=== PATIENT | female | born 1955 | race Caucasian/White ===

== ENCOUNTER → 2019-04-16 12:03 | Outpatient (CLI) | payer MEDICAID ==
[2015-06-16 06:12] VITALS: BMI 23.8
[~2019-04-16 12:03] MED LIST: AMITIZA8 MCG PO; EFFEXOR75 MG PO; ENULOSE10 G/15 ML PO; HYDROCODON-ACE1 EAC7 PO; LEVSIN/ANASP0.125 MG PO; LINZESS145 MCG PO; PRILOSEC20 MG PO; PROBIOTIC1 EAC1 PO
== END | disposition home or self-care (01) ==
LOC: D.MRI 12:03
PROVIDERS: ATTEND Clinical Nurse Specialist Family Health
DX: M25.512 Pain in left shoulder (principal)

== ENCOUNTER → 2019-04-19 08:55 | Outpatient (CLI) | payer MEDICARE, MEDICAID, OTHER ==
[2015-06-16 06:12] VITALS: BMI 23.8
== END | disposition home or self-care (01) ==
LOC: D.HCCARDIO 08:55
PROVIDERS: ATTEND Internal Medicine Cardiovascular Disease
DX: I20.9 Angina pectoris, unspecified (principal)

== ENCOUNTER 2019-05-16 06:27 | Outpatient (CLI) | payer MEDICARE, OTHER, MEDICAID ==
[~2019-05-16] VITALS: Ht 156.2 cm; Wt 49.1 kg
--- NOTE | ~2019-05-16 | HEMODYNAMI ---
PATIENT:EDUARDO MONTE MEDICAL RECORD: [id number] : 51 LOCATION:[facility] ADMISSION DATE: 05/16/19 Generatedon:05/16/201911:23 Patient name: EDUARDO MONTE Patient #: [id number] SSN: [id number] : 1955 Date of study: 05/16/2019 Page: Of Hemodynamic Procedure Report Patient Data Patient Demographics Procedure consent was obtained First Name: EDUARDO Gender: Female Last Name: LAVELL : 1955 Middle Initial: FRANCESCA Age: 63 year(s) Patient #: [id number] Race: SSN: [id number] Additional ID: [id number] Contact details [address]: [address] [place] [address] State: [place] City: [place] Zip code: [address] Past Medical History Performed procedures and imaging results Date Procedure Procedure Results Comments 04/19/2019 Stress testing Positive->Intermediate with SPECT MPI risk Allergies: No known allergies Admission Admission Data Admission Date: 05/16/2019 Admission Time: 6:27 Arrival Date: 05/16/2019 Arrival Time: 0:00 Admit Source: Other Insurance Payor: Medicare [facility] #: [id number] Height (in.): 61.5 BSA: 1.46 (m2) Height (cm.): 156.21 BMI: 20.12 (kg/m2) Weight (lbs.): 108.23 Weight (kg.): 49.09 Lab Results Lab Result Date: 05/16/2019 Lab Result Time: 0:00 Biochemistry Name Units Result Min Max BUN mg/dl 10 --(-*--)-- 7 18 Creatinine mg/dl 0.7 --(*---)-- 0.6 1.3 eGFR ml/min 88.87485 -*(----)-- 90 120 NONAFRICAN CBC Name Units Result Min Max Hematocrit % 37.6 *-(----)-- 42 54 Hemoglobin g/dl 12.5 *-(----)-- 13.5 17.5 Procedure Procedure Types Cath Procedure Diagnostic Procedure [facility] w/Coronaries Sedation Charges Moderate Sedation up to 30 minutes PCI Procedure Coronary Stent Coronary Stent Initial Hemochron ACT Test Procedure Description Procedure Date Procedure Date: 05/16/2019 Procedure Start Time: 10:40 Procedure End Time: 11:12 Procedure Staff Name Function Diego Pires MD Performing Physician Renate Jarquin RT Monitor Joyce Sim RT Monitor Mac Rojas RN Nurse Alaina García RT Scrub Mustapha Ballesteros RT Scrub Indication Chest pain Procedure Data Cath Procedure Fluoroscopy Diagnostic fluoroscopy Total fluoroscopy Time: 5.4 time: 5.4 min min Diagnostic fluoroscopy Total fluoroscopy dose: 372 dose: 372 mGy mGy Contrast Material Contrast Material Type Amount (ml) Isovue 370 107 Entry Location Entry Primary Successful Side Size Upsize Upsize Entry Closure Succes sful Closure Location (Fr) 1 (Fr) 2 (Fr) Remarks Device Remarks Femoral Right 5 Fr 6 Fr Exoseal artery Short Estimated blood loss: 10 ml Diagnostic catheters Device Type Used For End Catheter Placement MULTIPACK JL 4.0 5Fr Procedure catheter MULTIPACK 3DRC 5Fr Procedure catheter MULTIPACK Pigtail 5 Fr Procedure catheter Procedure Complications No complications Procedure Medications Medication Administration Route Dosage Oxygen etCO2 Nasal cannula 2 l/min Lidocaine 2% added to field 20 Heparin Flush Bag added to field 2 bags (1000units/500ml NS) 0.9% NaCl I.V. 100 ml/hr Versed I.V. 2 mg Fentanyl I.V. 50 mcg Versed I.V. 2 mg Fentanyl I.V. 50 mcg Versed I.V. 2 mg Heparin Bolus I.V. 5000 units Fentanyl I.V. 25 mcg Plavix P.O. 600 mg Hemodynamics Rest BSA: 1.46 (m2) HGB: 12.5 (g/dl) O2 Consumption: Estimated: 132.97 (ml/min) O2 Co nsumption indexed: Estimated:91.08 (ml/min/m) Heart Rate: 64 (bpm) Pressure Samples Time Site Value (mmHg) Purpose Heart Use Rate(bpm) 10:49 LV 137/-4,20 Snapshot 68 10:49 AO 105/58(78) Pullback 66 10:49 LV 110/-3,6 Pullback 66 Gradients Valve Time Site 1 Site 2 Mean SEP/DFP Peak To Heart Use (mmHg) (sec/min) Peak Rate (mmHg) (bpm) Aortic 10:49 LV AO 6 21 5 66 110/-3,6 105/58(78) Calculations Valve P-P Mean Valve Index Valve Source Name Gradient Area Flow (cm2) Aortic 5 6 5 6 Snapshots Pre Cath Intra NCS Post Cath Vital Signs Time Heart Resp SPO2 etCO2 NIBP Rhythm Pain Sedation Rate (ipm) (%) (mmHg) (mmHg) Status Level (bpm) 10:28:37 74 15 98 24.4 137/84(99) NSR 0 (11) 10(A) , No pain 10:32:53 64 12 97 37.8 120/64(88) NSR 0 (11) 10(A) , No pain 10:37:07 66 11 98 33.4 106/57(78) NSR 0 (11) 10(A) , No pain 10:41:11 65 13 97 26.7 108/70(85) NSR 0 (11) 10(A) , No pain 10:45:20 66 10 97 36.3 94/57(74) NSR 0 (11) 10(A) , No pain 10:49:22 66 10 97 37.1 95/62(88) NSR 0 (11) 10(A) , No pain 10:53:26 62 12 97 37 103/60(80) NSR 0 (11) 9(A) , No pain 10:57:34 62 11 97 38.5 99/54(76) NSR 0 (11) 9(A) , No pain 11:01:39 62 10 97 37.8 100/57(78) NSR 0 (11) 9(A) , No pain 11:05:45 61 12 97 40.7 98/57(78) NSR 0 (11) 10(A) , No pain 11:10:34 71 8 98 31.8 116/78(90) NSR 0 (11) 10(A) , No pain Medications Time Medication Route Dose Verified Delivered Reason Notes Effectiveness by by 10:28:06 Oxygen etCO2 2 Diego Buffie used for Nasal l/min Pranay Rojas potato inspector cannula 10:28:11 Lidocaine 2% added 20ml Diego Diego for local to vial Pranay Pires MD anesthetic field 10:28:17 Heparin Flush added 2 Idego Diego used for Bag to bags Pranay Pires MD procedure (1000units/500ml field NS) 10:28:25 0.9% NaCl I.V. 100 Diego Buffie Per physician ml/hr Pranay Rojas RN 10:36:42 Versed I.V. 2 mg Diego Buffie for sedation Pranay Rojas RN 10:36:48 Fentanyl I.V. 50 Diego Buffie for sedation mcg Pranay Rojas RN 10:43:03 Versed I.V. 2 mg Diego Buffie for sedation Pranay Rojas RN 10:43:06 Fentanyl I.V. 50 Diego Buffie for sedation mcg Pranay Rojas RN 10:46:38 Versed I.V. 2 mg Diego Buffie for sedation Pranay Rojas RN 10:54:30 Heparin Bolus I.V. 5000 Diego Buffie for verif ied units Pranay Rojas RN anticoagulation with dr pires 11:02:22 Fentanyl I.V. 25 Diego Buffie for sedation mcg Pranay Rojas RN 11:09:47 Plavix P.O. 600 Diego Buffie for mg Pranay Rojas RN antiplatelet therapy Procedure Log Time Note 10:08:16 Diagnostic Cath Status : Elective 10:08:39 Indication : Chest pain 10:08:44 Procedure Status Elective Heart Cath (OP). 10:08:51 Plan of Care:Hemodynamics will remain stable., Cardiac rhythm will remain stable., Comfort level will be maintained., Respiratory function will remain adequate., Patient/ family verbilizes understanding of procedure., Procedure tolerated without complication., Recovers from procedure without complications.. 10:08:54 Time tracking: Regular hours (M-F 7:00 - 5:00) 10:12:01 Mac Rojas RN sent for patient. Start room use. 10:12:20 Lab results completed and on chart. 10:12:52 Lab Result : BUN 10 mg/dl 10:12:52 Lab Result : Creatinine 0.7 mg/dl 10:12:52 Lab Result : eGFR NONAFRICAN 88.92345 ml/min 10:12:52 Lab Result : Hemoglobin 12.5 g/dl 10:12:52 Lab Result : Hematocrit 37.6 % 10:13:29 Stress Test: yes; abnormal anterior 10:13:35 Risk of Mortality: 0.2 10:13:38 Risk of blood transfusion: 2.0 10:13:42 Risk of LIZ: 1.1 10:14:19 H&P Date Dictated: 04/17/2019 Within 30 days and on chart.. 10:14:43 Informed consent obtained and on chart 10:18:00 Arrival Date: 05/16/2019 12:00:00 AM 10:19:03 Patient Height : 61.5 inches 10:19:10 Patient Weight : 108.23 lbs 10:19:14 Admit Source: Other 10:19:14 Insurance Payor : Medicare 10:19:53 Patient received from Pre/Post Procedure Room to CCL 1 Alert and oriented. Tansferred to table in Supine position. 10:19:56 Warm blankets applied, and jenni hugger turned on for patient comfort. 10:19:57 Correct patient and procedure confirmed by team. 10:19:58 ECG and BP/O2 sat monitors applied to patient. 10:20:02 Pre-procedure instructions explained to patient. 10:20:03 Pre-op teaching completed and patient verbalized understanding. 10:20:06 Family in waiting room. 10:20:07 Patient NPO since Midnight. 10:20:12 Patient allergic to No known allergies 10:20:18 Alarms reviewed by R. N. 10:20:18 Sharps counted by scrub and verified by R.N. 10:27:32 Vital chart was started 10:27:37 Is the patient allergic to Iodine/contrast media? No. 10:27:39 Is patient on blood thinner?No 10:27:41 Patient diabetic? No. 10:27:43 If diabetic: On Metformin? N/A 10:27:50 Patient not . Patient is over age 55. 10:27:51 ----Pre-sedation anethsthesia assessment.---- 10:27:55 Previous problem with sedation/anesthesia? No ? 10:27:56 Snore? Yes 10:27:58 Sleep apnea? No 10:28:00 Deviated septum? No 10:28:01 Opens mouth fully? Yes 10:28:02 Sticks out tongue? Yes 10:28:04 Airway obstruction? No ? 10:28:06 Oxygen 2 l/min etCO2 Nasal cannula was administered by Mac Rojas RN; used for procedure; Verbal order read back and verified. 10:28:10 Dentures? Yes TOP IN TIGHT 10:28:11 Lidocaine 2% 20ml vial added to field was administered by Diego Pires MD; for local anesthetic; Verbal order read back and verified. 10:28:16 Pre procedure: right dorsailis pedis pulse 2+ Normal; easily identifiable; not easily obliterated 10:28:17 Heparin Flush Bag (1000units/500ml NS) 2 bags added to field was administered by Diego Pires MD; used for procedure; Verbal order read back and verified. 10:28:20 Patient pain scale 0/10 ?. 10:28:25 0.9% NaCl 100 ml/hr I.V. was administered by Mac Rojas RN; Per physician; Verbal order read back and verified. 10:28:29 IV patent on arrival in right wrist with 0.9% NaCl at O. 10:28:41 Right groin area was prepped with chlora-prep and draped in sterile fashion 10:28:47 Use device set Femoral Dx 10:28:52 ACIST Syringe (18820) opened to sterile field. 10:28:53 Bag Decanter (2002S) opened to sterile field. 10:28:54 Medline Cath Pack ([id number]) opened to sterile field. 10:28:56 ACIST Hand Control (34978) opened to sterile field. 10:28:56 ACIST Manifold (33690) opened to sterile field. 10:28:57 DIAGNOSTIC Multipack 5Fr catheter set ([id number]) opened to sterile field. 10:28:59 SHEATH 5FR Jones (SNX957) opened to sterile field. 10:29:00 EMERALD Guide Wire (773-991) opened to sterile field. 10:29:16 Full Disclosure recording started 10:29:51 GROIN DUE TO PTS SZ PER DR PIRES. 10:34:07 --------ALL STOP TIME OUT------ 10:34:07 Final Timeout: patient, procedure, and site verified with staff and physician. All members of the team are in agreement. 10:34:10 Right groin site verified by team. 10:34:15 Fire Safety Assessment: A--An alcohol-based skin anteseptic being used preoperatively., C--Open oxygen or nitrous oxide is being used., D--An ESU, laser, or fiber-optic light is being used. 10:34:32 Physical assessment completed. ASA score P 2 - A patient with mild systemic disease as per Diego Pires MD. 10:34:38 2) 60-89 Mildly reduced kidney function, and other findings (as for stage 1) point to kidney disease. 10:34:43 Maximum allowable contrast dose (3.7 X eGFR X 0.75)247 ml. 10:34:47 Sedation plan: IV Moderate Sedation Medication:Versed, Fentanyl 10:36:42 Versed 2 mg I.V. was administered by Mac Rojas RN; for sedation; Verbal order read back and verified. 10:36:48 Fentanyl 50 mcg I.V. was administered by Mac Rojas RN; for sedation; Verbal order read back and verified. 10:37:39 Zero performed for pressure channel P1 10:39:59 Procedure started. 10:40:29 Local anesthetic to right femoral artery with Lidocaine 2% by Diego Pires MD.INITIAL ACCESS ONLY 10:42:11 Baseline sample Acquired. 10:42:15 Rhythm: sinus rhythm 10:42:27 A 5 Fr sheath was inserted into the Right Femoral artery 10:43:03 Versed 2 mg I.V. was administered by Mac Rojas RN; for sedation; Verbal order read back and verified. 10:43:03 A MULTIPACK JL 4.0 5Fr catheter was advanced over the wire and used for Procedure. 10:43:06 Fentanyl 50 mcg I.V. was administered by Mac Rojas RN; for sedation; Verbal order read back and verified. 10:43:52 LCA angiography performed. 10:45:33 Catheter exchanged over wire. 10:45:41 A MULTIPACK 3DRC 5Fr catheter was advanced over the wire and used for Procedure. 10:46:38 Versed 2 mg I.V. was administered by Mac Rojas RN; for sedation; Verbal order read back and verified. 10:46:51 RCA angiography performed. 10:47:19 ACCDominant side:Co-Dominant 10:47:31 Catheter exchanged over wire. 10:47:50 A MULTIPACK Pigtail 5 Fr catheter was advanced over the wire and used for Procedure. 10:49:20 LV hemodynamics recorded. 10:49:24 Injector settings: Ml/sec: 10, Volume: 20, 10:49:27 LV gram done using BARRIOS 10:49:33 EF : 55 % 10:50:02 Catheter exchanged over wire. 10:50:03 Proceeding to intervention. 10:50:36 SHEATH 6FR Jones (EBJ440) opened to sterile field. 10:50:37 INFLATOR Merit BasixCompak (TN5891) opened to sterile field. 10:50:37 BMW 300cm Straight Chappell 2 wire ([id number]) opened to sterile field. 10:50:38 TUBING High Pressure Extension Tubing (Pranay) ([id number]) opened to sterile field. 10:51:10 GUIDE 6FR XBLAD 3.5 catheter ([id number]) opened to sterile field. 10:51:20 Sheath upsized to a 6 Fr Short. 10:51:31 6 Fr XBLAD 3.5 guide catheter was inserted over the wire 10:51:55 BMW 300 wire advanced. 10:52:18 Pre PCI Site: [place] mLAD has 80% stenosis. 10:54:30 Heparin Bolus 5000 units I.V. was administered by Mac Rojas RN; for anticoagulation; verified with dr pires Verbal order read back and verified. 10:54:55 Wire advanced across lesion. 10:57:55 Inflate balloon Inflation number: 1 A Mozec Rx 2.5 x 14 balloon was prepped and advanced across the Mid LAD , then inflated to 10 LAZARA for 0:00 (min:sec) . 10:58:20 Inflation number: 2 The Mozec Rx 2.5 x 14 balloon was reinflated across the Mid LAD , to 10 LAZARA for 0:00 (min:sec) . 10:59:54 Balloon removed over the wire. 11:02:22 Fentanyl 25 mcg I.V. was administered by Mac Rojas RN; for sedation; Verbal order read back and verified. 11:04:03 Place stent Inflation Number: 3 A RACIEL OTW 2.5 x 22 stent ([id number]) was prepped and advanced across the Mid LAD . The stent was deployed at 13 LAZARA for 0:00 (min:sec) . 11:04:50 ACT drawn and resulted at ? seconds. (normal therapeutic range 180-240 seconds). 11:04:51 ACT drawn and resulted at 000 seconds. (normal therapeutic range 180-240 seconds). 11:04:54 Stent catheter was removed intact over wire. 11:04:55 Wire removed. 11:04:55 Guide catheter removed. 11:05:08 EXOSEAL 6Fr (EX600) opened to sterile field. 11:05:31 Sheath removed intact; hemostasis achieved with Exoseal to the Right Femoral artery. 11:06:47 Procedure ended.(Physican Out) 11:06:58 Fluoroscopy time 05.40 minutes. 11:07:02 Fluoroscopy dose: 372 mGy 11:07:02 Flurop Dose total: 372 11:07:12 Dose Area Product 16291 mGy/cm. 11:07:17 Contrast amount:Isovue 370 107ml. 11:07:20 Maximum allowable dose exceeded? No. 11:07:22 Sharps counted by scrub and verified by R.N. 11:07:27 Post-op/insertion site Right Femoral artery dressed using a 4 x 4 and Tegaderm. 11:07:32 Post right femoral artery:stable, soft, clean and dry 11:07:34 Post Procedure Pulses reassessed and unchanged 11:07:37 Post procedure: right dorsailis pedis pulse 2+ Normal; easily identifiable; not easily obliterated. 11:07:40 Post-procedure physical assessment completed. ASA score P 2 - A patient with mild systemic disease as per Diego Pires MD. 11:07:44 Post procedure rhythm: unchanged. 11:07:47 Estimated blood loss: 10 ml 11:07:49 Post procedure instruction explained to patient.Patient verbalizes understanding. 11:07:50 Patient needs reinforcement of post procedure teaching. 11:08:38 Procedure type changed to Cath procedure, Diagnostic procedure, LHC, [facility] w/Coronaries, Sedation Charges, Moderate Sedation up to 30 minutes, PCI procedure, Coronary Stent, Coronary Stent Initial, Hemochron ACT Test 11:09:47 Plavix 600 mg P.O. was administered by Mac Rojas RN; for antiplatelet therapy; Verbal order read back and verified. 11:11:36 Procedure and supply charges have been captured, reviewed, submitted and are correct. 11:11:45 Procedure Complication : No complications 11:11:48 Vital chart was stopped 11:11:[address] [facility] Findings: MVD- PCI performed (see procedure note) 11:11:51 Operative report dictated upon procedure completion. 11:11:52 See physician's report for complete and final results. 11:11:56 Report given to Pre/Post Procedure Room. 11:11:59 Patient transfered to Pre/Post Procedure Room with Stretcher. 11:12:03 Procedure ended. 11:12:03 Full Disclosure recording stopped 11:12:48 ACT 333. 11:22:04 Femstop placed over the right femoral artery at 140 mmHg. Hemostasis achieved. 11:22:23 PRECAUTIONARY. 11:22:38 FEMSTOP Gold ([id number]) opened to sterile field. 11:22:51 ACC-PCI Only Patient was given prescriptions, or instructed by Diego Pires MD to start/continue the following medications upon discharge: Plavix 11:22:52 End room use (Document Last) 11:23:06 End room use (Document Last) 11:23:22 End room use (Document Last) Intervention Summary Intervention Notes Time ActionType Lesion and Equipment Action# Pressure Duration Attributes Used 10:57:55 Inflate Mid LAD Mozec Rx 2.5 1 10 00:00 balloon x 14 balloon 10:58:20 Reinflate Mid LAD Mozec Rx 2.5 2 10 00:00 balloon x 14 balloon 11:04:03 Place stent Mid LAD RACIEL OTW 2.5 3 13 00:00 x 22 stent ([id number]) Device Usage Item Name Manufacture Quantity Catalog Hospital Part Current Minim al Lot# / Number Charge Number Stock Stock Serial# Code ACIST Syringe Acist 1 36826 464231 581599 166489 20 (42491) Medical Systems Inc Bag Decanter Microtek 1 145786 23097 501201 5 () Medical Inc. Medline Cath Medline 1 [id number] 455866 24498 265704 5 Pack ([id number]) ACIST Hand Acist 1 43384 628001 454578 659989 5 Control Medical (41602) Systems Inc ACIST Acist 1 30431 609209 062060 895875 5 Manifold Medical (75812) Systems Inc DIAGNOSTIC Cardinal 1 OW6057 425957 74404 359284 30 Multipack 5Fr Health catheter set (OG6644) SHEATH 5FR Terumo 1 NTK764 226608 944559 836858 5 Jones (AWO941) EMERALD Guide Cardinal 1 502455 824270 442460 461123 5 Wire Health (502455) MULTIPACK JL Cardinal 1 016721 5 4.0 5Fr Health catheter MULTIPACK Cardinal 1 366114 5 3DRC 5Fr Health catheter MULTIPACK Cardinal 1 738127 5 Pigtail 5 Fr Health catheter SHEATH 6FR Terumo 1 JSP605 661429 345094 745794 40 Jones (ENA353) INFLATOR Merit 1 HB5117 450450 383052 445535 15 Merit Medical BasixCompak (EB8773) BMW 300cm Jeffers 1 6470206 142544 741861 987067 5 Straight Vascular Chappell 2 wire (4494127) TUBING High Merit 1 [id number] 302976 81438 912325 10 Pressure Medical Extension Tubing (Pires) ([id number]) GUIDE 6FR Cardinal 1 [id number] 196465 459267 710128 10 XBLAD 3.5 Health catheter (98328862) Mozec Rx 2.5 Cardinal 1 [id number] 393544 21766 482654 5 UMOE39 x 14 balloon Health RACIEL OTW 2.5 Medtronic 1 [id number] 194425 90988 799313 5 [id number] x 22 stent ([id number]) EXOSEAL 6Fr Cardinal 1 EX600 816121 177166 651924 10 (EX600) Health FEMSTOP Gold St El 1 K53657 485011 234395 433642 5 ([id number]) Signature Audit [place] Stage Time Signature Unsigned Intra-Procedure 05/16/2019 Joyce Sim 11:23:06 AM RT(R) Intra-Procedure 05/16/2019 Mac Rojas RN 11:23:22 AM Intra-Procedure 05/16/2019 Diego Pires MD 11:23:44 AM [facility] [address] [place] [address]
[2019-05-16] MEDS ORDERED: HYDROCODON-ACE1 EAC7 PO (07:25)
[2019-05-16 07:49] VITALS: BP 140/74; Ht 156.2 cm; Wt 49.1 kg
[2019-05-16 07:55] LABS: BASOPHILS 0.5 % (0-2); EOSINOPHILS 1.2 % (0-7); HEMATOCRIT 37.6 % (36.0-48.0); HEMOGLOBIN 12.5 g/dL (12-16); LYMPHOCYTES 43.9 % (15-50); MCHC 33.2 g/dL (31.0-37.0); MCV 93.3 fL (80.0-100.0); MEAN PLATELET VOLUME 8.9 fL (7.4-10.4); MONOCYTES 9.5 % (2-11); NEUTROPHILS 44.9 % (40-80); PLATELET COUNT 235 10x3/uL (130-400); RBC 4.03 10x6/uL (4.00-5.40); RDW 13.9 % (11.5-14.5)
[2019-05-16 08:17] LABS: ALT (SGPT) 23 U/L (10-68); CALC OSMOLALITY 283 mosm/kg (275-300); CALCIUM 9.3 mg/dL (8.5-10.1); CARBON DIOXIDE 27.8 mmol/L (21.0-32.0); CHLORIDE - SERUM 105 mmol/L (98-107); CHOL - HDL RATIO 2.7 ratio (2.3-4.1); CHOLESTEROL, TOTAL 295 mg/dL (0-200); CREATININE - SERUM 0.7 mg/dL (0.6-1.3); GLUCOSE 100 mg/dL (74-106); HDL CHOLESTEROL 110 mg/dL (32-96); LDL CHOLESTEROL 170 mg/dL (0-100); LDL-HDL RATIO 1.5 ratio (1.5-3.5); POTASSIUM - SERUM 3.3 mmol/L (3.5-5.1); SODIUM 143 mmol/L (136-145); TRIGLYCERIDE 78 mg/dL (30-200); UREA NITROGEN 10 mg/dL (7-18); eGFR NON AFRICAN AMERICAN 89 mL/min (90-120)
[2019-05-16] MEDS ORDERED: PLAVIX75 MG PO (11:23)
[2019-05-16] MEDS ORDERED: ASPIRIN81 MG PO (11:23)
--- NOTE | 2019-05-16 11:25 | NUR ---
PATIENT ARRIVED TO ROOM 7, PLACED ON CM. VSS ON 2L NC. RIGHT GROIN 6F EXOSEAL, FEMOSTOP PLACED AT 1122, AT 105 MMHG. NO S/S OF BLEEDING OR HEMATOMA. WILL CONTINUE TO MONITOR. PHYSICIAN PREVIOUSLY AT BEDSIDE TO UPDATE SPOUSE.
--- NOTE | 2019-05-16 11:40 | NUR ---
PATIENT GIVEN WATER REQUESTED, NO N/V. VSS ON 2L NC. HR 54. NIBP 91/51. FEMOSTOP REMAINS IN PLACE ON RIGHT GROIN SITE, NO S/S OF BLEEDING OR HEMATOMA. NO C/O PAIN,NUMBNESS, OR TINGLING. WILL CONTINUE TO MONITOR.
--- NOTE | 2019-05-16 12:10 | NUR ---
PATIENT INTERMITTENTLY RESTING, VSS ON 2L NC. RIGHT GROIN SITE SHOWS NO S/S OF BLEEDING OR HEMATOMA. NO C/O PAIN, NUMBNESS, OR TINGLING. 15 CC OF AIR REMOVED FROM FEMOSTOP PER PROTOCOL, NO S/S OF BLEEDING OR HEMATOMA.
--- NOTE | 2019-05-16 12:40 | NUR ---
25 CC OF AIR REMOVED FROM FEMOSTOP, NO S/S OF BLEEDING OR HEMATOMA. NO C/O PAIN, NUMBNESS, OR TINGLING. VSS ON ROOM AIR. TOLERATING PO FLUIDS, NO N/V. SPOUSE PRESENT AT BEDSIDE.
--- NOTE | 2019-05-16 13:10 | NUR ---
FEMOSTOP DEVICE REMOVED, DRESSING APPLIED WITH 4X4s AND LARGE TEGADERM, NO S/S OF BLEEDING OR HEMATOMA. VSS ON ROOM AIR. NO C/O PAIN, NUMBNESS, OR TINGLING. NO N/V. HR 54. NIBP 141/74.
--- NOTE | 2019-05-16 13:30 | NUR ---
PATIENT C/O ACHING PAIN IN LEFT CHEST AND LEFT SHOULDER BLADE, RATES IT 6/10. PATIENT DENIES PRESSURE, NUMBNESS, OR TINGLING, OR RADIATION OF PAIN. VSS ON ROOM AIR. HR 57. NIBP 143/73. 12 LEAD EKG OBTAINED AND REVIEWED WITH PHSYICIAN, VERBAL ORDERS FOR GI COCKTAIL RECEIVED FROM DR. TOMAS.
--- NOTE | 2019-05-16 13:55 | NUR ---
RIGHT GROIN DRESSING IS CDI, NO S/S OF BLEEDING OR HEMATOMA. NO C/O PAIN, NUMBNESS, OR TINGLING. VSS ON ROOM AIR. PATIENT UPDATED REGARDING PHYSICIAN ORDERS. FAMILY AT BEDSIDE UPDATED.
--- NOTE | 2019-05-16 14:10 | NUR ---
HEAD OF BED ELEVATED TO 45 DEGREES. RIGHT GROIN DRESSING IS CDI, NO S/S OF BLEEDING OR HEMATOMA. PATIENT C/O ACHING PAIN IN LEFT SHOULDER BLADE AND LEFT FRONT CHEST AREA, PATIENT DENIES RADIATION OF PAIN. VSS ON ROOM AIR. NO NUMBNESS OR TINGLING. PATIENT GIVEN ORANGE SHERBERT PER REQUEST, NO N/V.
--- NOTE | 2019-05-16 14:40 | NUR ---
ORAL GI COCKTAIL GIVEN ORDERED. VSS ON ROOM AIR. RIGHT GROIN DRESSING IS CDI, NO S/S OF BLEEDING OR HEMATOMA. SPOUSE PRESENT AT BEDSIDE.
--- NOTE | 2019-05-16 15:00 | NUR ---
PATIENT STATES TOTAL RELIEF OF PAIN IN LEFT SHOULDER AND CHEST REGION. VSS ON ROOM AIR. RIGHT GROIN DRESSING IS CDI, NO S/S OF BLEEDING OR HEMATOMA. NO C/O PAIN, NUMBNESS, OR TINGLING. PIV REMOVED WITH CATHETER INTACT. PATIENT REMOVED FROM MONITORS TO GET DRESSED. WRITTEN AND VERBAL DISCHARGE INSTRUCTIONS AND MEDICATION INSTRUCTIONS GIVEN TO PATIENT AND SPOUSE, BOTH VOICE UNDERSTANDING. PATIENT VOIDED WITHOUT DIFFICULTY.
--- NOTE | 2019-05-16 15:10 | NUR ---
PATIENT TRANSPORTED VIA WHEELCHAIR TO CAR WITH SPOUSE DRIVING, ALL BELONGINGS WITH PATIENT.
== END 2019-05-16 15:10 ==
LOC: D.CATH 06:27
PROVIDERS: ATTEND Internal Medicine Cardiovascular Disease
DX: I20.9 Angina pectoris, unspecified (principal); R94.39 Abnormal result of other cardiovascular function study; R07.9 Chest pain, unspecified

== ENCOUNTER 2019-05-19 10:52 | Emergency (ER) | payer MEDICARE, OTHER, MEDICAID ==
[~2019-05-19] VITALS: Ht 156.2 cm; Wt 49.1 kg
[~2019-05-19 10:52] MED LIST changes: +ASPIRIN81 MG PO; +PLAVIX75 MG PO
[2019-05-19 10:55] VITALS: Ht 156.2 cm; Wt 49.1 kg
[2019-05-19 11:20] LABS: BASOPHILS 0.4 % (0-2); HEMATOCRIT 35.3 % (36.0-48.0); HEMOGLOBIN 11.6 g/dL (12-16); IMMATURE GRANULOCYTES 0.2 % (0-5); LYMPHOCYTES 44.2 % (15-50); MCH 30.9 pg (26.0-34.0); MCHC 32.9 g/dL (31.0-37.0); MCV 94.1 fL (80.0-100.0); MEAN PLATELET VOLUME 8.6 fL (7.4-10.4); NEUTROPHILS 45.2 % (40-80); PLATELET COUNT 203 10x3/uL (130-400); RBC 3.75 10x6/uL (4.00-5.40); RDW 13.6 % (11.5-14.5); WBC 4.9 10x3/uL (4.8-10.8)
[2019-05-19 11:30] LABS: APTT 21.9 SECONDS (22.8-39.4); INR 0.92 (0.85-1.17); PROTIME 11.9 SECONDS (11.6-15.0)
[2019-05-19 11:41] LABS: CALC OSMOLALITY 280 mosm/kg (275-300); CALCIUM 9.1 mg/dL (8.5-10.1); CARBON DIOXIDE 26.9 mmol/L (21.0-32.0); CHLORIDE - SERUM 104 mmol/L (98-107); CREATININE - SERUM 0.6 mg/dL (0.6-1.3); GLUCOSE 90 mg/dL (74-106); POTASSIUM - SERUM 3.9 mmol/L (3.5-5.1); SODIUM 141 mmol/L (136-145); UREA NITROGEN 13 mg/dL (7-18); eGFR NON AFRICAN AMERICAN > 90 mL/min (90-120)
[2019-05-19 11:47] LABS: ALBUMIN 4.3 g/dL (3.4-5.0); ALKALINE PHOSPHATASE 57 U/L (46-116); ALT (SGPT) 21 U/L (10-68); BILIRUBIN - TOTAL 0.38 mg/dL (0.2-1.3); PROTEIN - SERUM 7.9 g/dL (6.4-8.2)
[2019-05-19 12:29] VITALS: BP 136/80
== END 2019-05-19 12:43 | disposition home or self-care (01) ==
LOC: D.ER 10:52
PROVIDERS: Family Medicine
DX: L76.32 Postprocedural hematoma of skin and subcutaneous tissue following other procedure (principal)

== ENCOUNTER 2019-05-31 09:00 | Outpatient (CLI) | payer MEDICARE, OTHER, MEDICAID ==
[2019-05-19 10:55] VITALS: BMI 20.1
== END 2019-05-31 10:00 | disposition home or self-care (01) ==
LOC: D.MAMMO 09:00
PROVIDERS: ATTEND Family Medicine
DX: Z12.31 Encounter for screening mammogram for malignant neoplasm of breast (principal)

== ENCOUNTER → 2019-10-25 09:08 | Outpatient (CLI) | payer MEDICARE, OTHER, MEDICAID ==
[2019-05-19 10:55] VITALS: BMI 20.1
== END | disposition home or self-care (01) ==
LOC: D.HCCARDIO 09:08
PROVIDERS: ATTEND Internal Medicine Cardiovascular Disease
DX: I20.9 Angina pectoris, unspecified (principal)